=== PATIENT | female | born 1970 | race Caucasian/White ===

== ENCOUNTER 2017-10-28 13:17 | Emergency (ER) | payer BC ==
[2017-10-28 13:26] LABS: BASOPHIL (%) 0.6 % (0-1); BASOPHIL COUNT 0.1 K/uL (0-0.1); EOSINOPHIL (%) 1.3 % (0-5); EOSINOPHIL COUNT 0.2 K/uL (0-0.3); HEMOGLOBIN 14.6 G/DL (11.9-15.5); IMMATURE GRANULOCYTE (%) 0.4 % (0.0-0.7); LYMPHOCYTE (%) 16.4 % (15-42); LYMPHOCYTE COUNT 1.9 K/uL (1.0-2.8); MCH 28.3 PG (29.0-34.0); MCV 83.3 FL (83-99); MONOCYTE (%) 3.6 % (3-12); MONOCYTE COUNT 0.4 K/uL (0-0.8); NEUTROPHIL (%) 77.7 % (45-76); NEUTROPHIL COUNT 9.1 K/uL (1.8-6.4); PLATELET COUNT 278 K/uL (156-360); RBC DIS.WIDTH-CV 13.3 % (11.8-14.6); RBC DIS.WIDTH-SD 40.2 % (39-53); RED BLOOD COUNT 5.16 M/uL (3.80-5.20); WHITE BLOOD COUNT 11.7 K/uL (4.1-10.2)
[2017-10-28 13:45] LABS: AMYLASE 88 IU/L (1-118); CHLORIDE 106 mEq/L (99-109); POTASSIUM 4.5 mEq/L (3.7-5.4); SODIUM 138 mEq/L (136-147)
[2017-10-28 13:47] LABS: GLUCOSE 144 mg/dL (70-99)
[2017-10-28 13:50] LABS: SERUM ETHYL ALCOHOL < 10 mg/dL
[2017-10-28 13:51] LABS: CREATININE 0.8 mg/dL (0.6-1.3); GFR ESTIMATE (CALCULATED) > 59 mL/min/
[2017-10-28 13:52] LABS: UREA NITROGEN (BUN) 17 mg/dL (9-23)
[2017-10-28 13:54] LABS: LIPASE 37 U/L (1.0-51.0)
[2017-10-28 14:01] LABS: QUANTITATIVE HCG < 4.0 MIU/ML
[2017-10-28 15:27] LABS: APPEARANCE CLEAR ((CLEAR)); BILIRUBIN NEGATIVE; BLOOD NEGATIVE; COLOR YELLOW ((YELLOW)); GLUCOSE (STRIP) NEGATIVE; KETONES NEGATIVE; LEUKOCYTES NEGATIVE; NITRITE NEGATIVE; PROTEIN (STRIP) NEGATIVE; SPECIFIC GRAVITY 1.021 (1.000-1.030); UCUL ADDED? NO; UROBILINOGEN 0.2 MG/DL (0.2-1.0)
[2017-10-28 15:37] LABS: AMPHETAMINE NEGATIVE (500 ng/mL); BARBITURATES NEGATIVE (200 ng/mL); BENZODIAZEPINES NEGATIVE (150 ng/mL); BUPRENORPHINE NEGATIVE (10 ng/mL); COCAINE NEGATIVE (150 ng/mL); METHADONE NEGATIVE (200 ng/mL); METHAMPHETAMINE NEGATIVE (500 ng/mL); OPIATES (MORPHINE) NEGATIVE (100 ng/mL); OXYCODONE NEGATIVE (100 ng/mL); PHENCYCLIDINE NEGATIVE (25 ng/mL); PROPOXYPHENE NEGATIVE (300 ng/mL); THC CANNABINOIDS PRESUMPTIVE POSITIVE (50 ng/mL); TRICYCLIC ANTIDEPRESSANTS NEGATIVE (300 ng/mL)
== END 2017-10-28 20:33 | disposition short-term general hospital (02) ==
LOC: TRA 13:17
PROVIDERS: Emergency Medicine
PROC: 2W3MX1Z Immobilization of Left Lower Extremity using Splint (ICD-10-PCS; principal; 2017-10-28)
DX: S72.302A Unspecified fracture of shaft of left femur, initial encounter for closed fracture (principal); W18.2XXA Fall in (into) shower or empty bathtub, initial encounter; Y93.E1 Activity, personal bathing and showering; Y92.002 Bathroom of unspecified non-institutional (private) residence as the place of occurrence of the external cause; M19.90 Unspecified osteoarthritis, unspecified site; Z72.0 Tobacco use
CPT/HCPCS: 71045; 73552; 73700; 80048; 81003; 82150; 83690; 84702; 84999; 85025; 86850; 86900; 86901; 99281; 99285; G0480; J2405; J3010

== ENCOUNTER 2018-04-03 18:29 | Emergency (ER) | payer BC ==
[~2018-04-03] VITALS: Ht 157.5 cm; Wt 135.7 kg
[~2018-04-03 18:29] MED LIST: FUTURO RESTORI1 EACH MC; LOVENOX150 MG/1 M SC
[2018-04-03 19:27] LABS: HEMATOCRIT 38.7 % (36.0-46.0); MCHC 33.6 G/DL (30.0-36.0); MCV 80.5 FL (83-99); PLATELET COUNT 243 K/uL (156-360); RBC DIS.WIDTH-SD 43.3 % (39-53); RED BLOOD COUNT 4.81 M/uL (3.80-5.20); WHITE BLOOD COUNT 6.2 K/uL (4.1-10.2)
[2018-04-03 19:37] LABS: CHLORIDE 105 mEq/L (99-109); POTASSIUM 4.4 mEq/L (3.7-5.4); SODIUM 142 mEq/L (136-147)
[2018-04-03 19:38] LABS: GLUCOSE 93 mg/dL (70-99)
[2018-04-03 19:42] LABS: CREATININE 0.8 mg/dL (0.6-1.3); GFR ESTIMATE (CALCULATED) > 59 mL/min/
[2018-04-03 19:43] LABS: UREA NITROGEN (BUN) 20 mg/dL (9-23)
[2018-04-03] MEDS ORDERED: LIOTHYRONINE SO5 MCG PO (21:28)
[2018-04-03] MEDS ORDERED: LEVOTHYROXINE175 MCG PO (21:28)
[2018-04-03] MEDS ORDERED: LEVOTHYROXINE150 MCG PO (21:28)
[2018-04-03] MEDS ORDERED: CALCITRIOL0.25 MCG PO (21:29)
[2018-04-03] MEDS ORDERED: ENOXAPARIN40 MG/0.4 SC (21:30)
[2018-04-03] MEDS ORDERED: ATORVASTATIN CA20 MG PO (21:30)
[2018-04-03] MEDS ORDERED: MAGNESIUM200 MG PO (21:31)
[2018-04-03] MEDS ORDERED: VITAMIN B-121000 MC4 SL (21:32)
[2018-04-03] MEDS ORDERED: CALCIUM 600 +1 EAC2 PO (21:33)
[2018-04-03] MEDS ORDERED: ALEVE220 MG PO (21:34)
[2018-04-04 01:09] VITALS: BP 144/91
== END 2018-04-04 01:10 | disposition home or self-care (01) ==
LOC: EME 18:29
PROVIDERS: Nurse Practitioner Family
DX: I82.432 Acute embolism and thrombosis of left popliteal vein (principal); R22.42 Localized swelling, mass and lump, left lower limb; Z86.718 Personal history of other venous thrombosis and embolism; Z85.850 Personal history of malignant neoplasm of thyroid; Z85.830 Personal history of malignant neoplasm of bone; E78.5 Hyperlipidemia, unspecified
CPT/HCPCS: 71275; 73502; 80048; 85027; 85379; 93971; 99281; 99284; J1650